=== PATIENT | female | born 1980 | race Asian ===

== ENCOUNTER 2016-06-10 05:00 | Emergency (ER) | payer BC, OTHER ==
[~2016-06-10] VITALS: Ht 157.5 cm; Wt 63.5 kg
[2016-06-10 05:59] LABS: HEMATOCRIT 38.8 % (37.0-47.0); HEMOGLOBIN 13.4 gm/dL (12.0-15.0); MCH 32.4 pg (26.0-34.0); MCHC 34.4 g/dL (28.0-37.0); PLATELET COUNT 299 thou/uL (150-400); RBC 4.13 mil/uL (4.20-5.00); RDW 12.7 % (10.5-14.5); WBC 12.3 thou/uL (4.0-11.0)
[2016-06-10] MEDS ORDERED: BIRTH CONTROL (06:02)
[2016-06-10] MEDS ORDERED: LOMAIRA8 MG (06:03)
[2016-06-10] MEDS ORDERED: SENNA8.6 MG (06:04)
[2016-06-10] MEDS ORDERED: DUCODYL5 MG (06:05)
[2016-06-10 06:07] LABS: MANUAL DIFF YES
[2016-06-10 06:12] LABS: APTT 23.3 Seconds (24.5-32.8); CREATININE 0.8 mg/dL (0.6-1.0); POTASSIUM 3.8 mmol/L (3.5-5.1); PROTIME 9.5 Seconds (9.3-11.4)
[2016-06-10 06:16] LABS: ALBUMIN 3.6 g/dL (3.4-5.0); TOTAL BILIRUBIN 0.4 mg/dL (<0.1-1.0); TOTAL PROTEIN 7.4 g/dL (6.4-8.2)
[2016-06-10 07:08] LABS: ABSOLUTE NEUTROPHILS 11.2 thou/uL (1.4-8.2); TOTAL CELL COUNT 100
[2016-06-10] MEDS ORDERED: BENTYL 20 MG TA20 M1 PO ×2 (07:35→09:17)
[2016-06-10] MEDS ORDERED: SIMETHICON CHEW80 M1 PO (07:35)
[2016-06-10 07:41] LABS: URINE BILIRUBIN NEGATIVE (Negative); URINE BLOOD NEGATIVE (Negative); URINE COLOR YELLOW; URINE GLUCOSE-RANDOM* NEGATIVE (Negative); URINE KETONES 2+ (Negative); URINE LEUKOCYTES-REFLEX NEGATIVE (Negative); URINE PROTEIN (DIPSTICK) NEGATIVE (Negative); URINE SPECIFIC GRAVITY 1.025 (1.003-1.035); URINE UROBILINOGEN 0.2 E.U./dl (0.2-1.0)
[2016-06-10] MEDS ORDERED: FLAGYL500 MG PO (09:17)
[2016-06-10] MEDS ORDERED: CIPROFLOXACIN500 M1 PO (09:17)
[2016-06-10] MEDS ORDERED: ULTRAM 50MG TAB50 MG PO (09:17)
[2016-06-10 09:50] VITALS: BP 113/63
== END 2016-06-10 09:53 | disposition still patient (30) ==
LOC: ER 05:00
PROVIDERS: Emergency Medicine
DX: K52.9 Noninfective gastroenteritis and colitis, unspecified (principal)